=== PATIENT | male | born 1970 | race Caucasian/White ===

== ENCOUNTER 2023-04-18 03:02 | Day surgery (SDC) | payer OTHER, SELFPAY ==
[2023-04-12 12:27] VITALS: BMI 39.6
[2023-04-18 08:45] VITALS: BP 151/94; PULSE 66; RESP 20; TEMP 36.6; O2SAT 98
[2023-04-18] MEDS: LACTATED RINGERS 1,000 ML 150 ML IV CONT (09:00)
--- NOTE | 2023-04-18 09:26 | PM.HPGS ---
History of Present Illness History of Present Illness Consent: Risks, benefits, and alternatives have been discussed and questions answered. Patient agrees to proceed with procedure. Chief complaint: neoplasm screening Narrative: Ryan Baxter Jr. is a 52 year old male Presents for screening colonoscopy. Patient's current weight appetite and bowel movements are normal. Patient denies abdominal pain. He has had no bleeding. Family history is noncontributory. Review of Systems Review of Systems: Review of systems noncontributory. [facility] Past Medical History Medical History Anxiety Dyslipidemia Essential (primary) hypertension Impingement syndrome, shoulder, left Low testosterone BETO (obstructive sleep apnea) Recurrent aphthous stomatitis Tendinitis of both rotator cuffs Vitamin D deficiency Surgical History Surgical History No significant past surgical history Family History Family History Father Family history of cardiovascular disease Other Family history of coronary artery disease Social History Social History Smoking packs per day: 3 Smoking cigarettes per day: 60.0 Years smoked: 20 Smoking pack-years: 60.00 Smoking status: Former smoker Tobacco type: cigarettes Smoking end date: 10/28/09 Alcohol intake: current Alcohol use details: 3 per month Substance use: never Substance use type: does not use Lack of Transportation: No Lack of Food: Never True Current Housing: I Have Housing Concerned About Future Housing: No Difficulty Paying Gas/Electric Bills: No Difficulty Paying for Meds: No Currently Unemployed: No Education: Decline to Answer Difficulty w/ Childcare or Family Care: No Living arrangements: with family Occupation/Education: occupation Gender identity (if verbalized by the patient): Male Sexual Orientation (if Verbalized by the Patient): Straight or Heterosexual Spiritual care concerns: No Agree to blood products: Yes Meds Home Medications and Allergies Home Medications Medication Instructions Recorded Confirmed Type atorvastatin 10 mg tablet 10 mg PO QHS #90 tabs 12/15/22 04/12/23 Rx cholecalciferol (vitamin D3) 1,250 1,250 mcg PO WEEKLY 12/15/22 04/12/23 History mcg (50,000 unit) capsule lisinopril 10 1 tablet PO DAILY #90 tabs 12/15/22 04/12/23 Rx mg-hydrochlorothiazide 12.5 mg tablet omega-3 650 mg-dha 400 mg-epa 200 1 cap PO DAILY 12/15/22 04/12/23 History mg-fish oil-vit D3 300 unit capsule ([place]-3 Plus Vitamin D3) testosterone enanthate 75 mg/0.5 75 mg subcut 2XW 12/15/22 04/12/23 History mL subcutaneous auto-injector sodium,potassium,mag sulfates 17.5 See Rx Instructions PO .COMPLEX 03/10/23 04/12/23 Rx gram-3.13 gram-1.6 gram oral soln #354 mL (Suprep Bowel Prep Kit) sertraline 50 mg tablet (Zoloft) 50 mg PO DAILY #90 tabs 03/14/23 04/18/23 Rx Allergies Allergy/AdvReac Type Severity Reaction Status Date / Time Penicillins Allergy Rash Verified 04/18/23 08:44 Vital Signs Vital Signs - 24 hr 04/18/23 08:45 Temperature 98 F Pulse Rate 66 Respiratory Rate 20 Blood Pressure 151/94 H Pulse Oximetry 98 Oxygen Delivery Room Air Exam Narrative: Physical exam reveals patient to be alert. Vital signs stable. HEENT exam is unremarkable. Patient is anicteric. Lungs are clear to auscultation and percussion. Heart is without murmur or extra sounds. Abdomen bowel sounds are present soft nontender with no organomegaly. Digital external rectal exam is normal. Assessment and Plan Assessment and plan (1) Encounter for screening colonoscopy: Code(s): Z12.11 - Encounter for screening for malignant neoplasm of colon Status: Ac
--- NOTE | 2023-04-18 09:48 | WPDANESEPPF ---
Anes - Initial Pre Proc Eval Procedure: Operation Date: 04/18/23 10:00 Proposed Procedures p Screening Colonoscopy - Griffin Peralta MD Date/Time: 04/18/23 09:48 Surgeon: Griffin Peralta MD Pre Op Diagnosis: neoplasm screening Patient Data Age: 52 Gender: M Height: 1.85 m Weight: 133.9 kg Last Vital Signs Temp 98 F 04/18/23 08:45 Pulse 66 04/18/23 08:45 Resp 20 04/18/23 08:45 BP 151/94 H 04/18/23 08:45 Pulse Ox 98 04/18/23 08:45 O2 Del Method Room Air 04/18/23 08:45 Allergies Allergy/AdvReac Type Severity Reaction Status Date / Time Penicillins Allergy Rash Verified 04/18/23 08:44 Home Medications Medication Instructions Recorded Confirmed Type atorvastatin 10 mg tablet 10 mg PO QHS #90 tabs 12/15/22 04/12/23 Rx cholecalciferol (vitamin D3) 1,250 1,250 mcg PO WEEKLY 12/15/22 04/12/23 History mcg (50,000 unit) capsule lisinopril 10 1 tablet PO DAILY #90 tabs 12/15/22 04/12/23 Rx mg-hydrochlorothiazide 12.5 mg tablet omega-3 650 mg-dha 400 mg-epa 200 1 cap PO DAILY 12/15/22 04/12/23 History mg-fish oil-vit D3 300 unit capsule ([place]-3 Plus Vitamin D3) testosterone enanthate 75 mg/0.5 75 mg subcut 2XW 12/15/22 04/12/23 History mL subcutaneous auto-injector sodium,potassium,mag sulfates 17.5 See Rx Instructions PO .COMPLEX 03/10/23 04/12/23 Rx gram-3.13 gram-1.6 gram oral soln #354 mL (Suprep Bowel Prep Kit) sertraline 50 mg tablet (Zoloft) 50 mg PO DAILY #90 tabs 03/14/23 04/18/23 Rx Patient hx anesthesia problems: none Family hx anesthesia problems: none Results Review: All pre-operative results and documents have been reviewed as part of the pre-operative evaluation. [facility] Past Medical History Medical History Anxiety Dyslipidemia Essential (primary) hypertension Impingement syndrome, shoulder, left Low testosterone BETO (obstructive sleep apnea) Recurrent aphthous stomatitis Tendinitis of both rotator cuffs Vitamin D deficiency Surgical History Surgical History No significant past surgical history Family History Family History Father Family history of cardiovascular disease Other Family history of coronary artery disease Social History Social History Smoking packs per day: 3 Smoking cigarettes per day: 60.0 Years smoked: 20 Smoking pack-years: 60.00 Smoking status: Former smoker Tobacco type: cigarettes Smoking end date: 10/28/09 Alcohol intake: current Alcohol use details: 3 per month Substance use: never Substance use type: does not use Lack of Transportation: No Lack of Food: Never True Current Housing: I Have Housing Concerned About Future Housing: No Difficulty Paying Gas/Electric Bills: No Difficulty Paying for Meds: No Currently Unemployed: No Education: Decline to Answer Difficulty w/ Childcare or Family Care: No Living arrangements: with family Occupation/Education: occupation Gender identity (if verbalized by the patient): Male Sexual Orientation (if Verbalized by the Patient): Straight or Heterosexual Spiritual care concerns: No Agree to blood products: Yes Anes - Eval Final PreProcedure Day of Procedure 04/18/23 09:48 Patient weight: obese Heart: regular rate and rhythm Lungs: clear to auscultation Airway: Mallampati scale class II Neurological: alert and oriented Last oral intake: >/= 8 hours ASA classification: III Emergent: no Anesthetic plan: proceed Anesthesia type and monitoring: general GIVS and standard monitoring Results Review: All pre-operative results and documents have been reviewed as part of the pre-operative evaluation. Informed Consent: The patient's anesthetic plan and its attendant risks and benefits
[2023-04-18] MEDS: SIMETHICONE ORAL SUSPENSION 20 MG/0.3 ML 30 ML BOTTLE 0.6 ML IRRIGATION (10:06)
[2023-04-18 10:18] VITALS: BP 90/54; PULSE 72; RESP 17; O2SAT 98
[2023-04-18 10:28] VITALS: BP 90/58; PULSE 70; RESP 20; O2SAT 97
[2023-04-18 10:38] VITALS: BP 122/67; PULSE 68; RESP 17; O2SAT 97
== END 2023-04-18 10:49 | disposition home or self-care (01) ==
PROVIDERS: PCP Family Medicine; Visit Provider Internal Medicine Gastroenterology
PROC: 0DJD8ZZ Inspection of Lower Intestinal Tract, Via Natural or Artificial Opening Endoscopic (ICD-10-PCS; CPT 45378; principal; 2023-04-18 10:00)
DX: Z12.11 Encounter for screening for malignant neoplasm of colon (principal); K62.1 Rectal polyp; K64.4 Residual hemorrhoidal skin tags; F41.9 Anxiety disorder, unspecified; E78.5 Hyperlipidemia, unspecified; I10 Essential (primary) hypertension; G47.33 Obstructive sleep apnea (adult) (pediatric); E55.9 Vitamin D deficiency, unspecified; Z82.49 Family history of ischemic heart disease and other diseases of the circulatory system; Z87.891 Personal history of nicotine dependence; E66.9 Obesity, unspecified; Z68.38 Body mass index [BMI] 38.0-38.9, adult
CPT/HCPCS: 45385; 88305; J2704; J7120